=== PATIENT | female | born 1965 | race Caucasian/White ===

== ENCOUNTER 2018-05-20 11:44 | Emergency (ER) | payer OTHER ==
[~2018-05-20] VITALS: Ht 157.5 cm; Wt 86.2 kg
[~2018-05-20 11:44] MED LIST: GLYB5TAB14 PO; METF100028 PO; VALS160C PO
[2018-05-20 11:51] VITALS: BP 146/87
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
--- NOTE | 2018-05-20 12:03 | NUR ---
Patient being evaluated by physician at bedside.
[2018-05-20] MEDS ORDERED: ACETAMINOPHEN 325 MG TAB PO ONE (12:05)
[2018-05-20 12:52] VITALS: BP 143/83
--- NOTE | 2018-05-20 12:52 | NUR ---
Patient discharged with v/s stable. Written and verbal after care instructions given and explained. Patient alert, oriented and verbalized understanding of instructions. Ambulatory with steady gait. All questions addressed prior to discharge. ID band removed. Patient advised to follow up with PMD. Rx of norco and naprosyn given. Patient educated on indication of medication including possible reaction and side effects. Opportunity to ask questions provided and answered.
== END 2018-05-20 12:52 | disposition home or self-care (01) ==
LOC: MED 11:44
DX: S46.911A Strain of unspecified muscle, fascia and tendon at shoulder and upper arm level, right arm, initial encounter (principal); S16.1XXA Strain of muscle, fascia and tendon at neck level, initial encounter; S20.20XA Contusion of thorax, unspecified, initial encounter; E11.9 Type 2 diabetes mellitus without complications; I10 Essential (primary) hypertension; Z79.899 Other long term (current) drug therapy; Z79.84 Long term (current) use of oral hypoglycemic drugs; V49.50XA Passenger injured in collision with unspecified motor vehicles in traffic accident, initial encounter; Y93.89 Activity, other specified; Y92.410 Unspecified street and highway as the place of occurrence of the external cause; Y99.8 Other external cause status
CPT/HCPCS: 99283

== ENCOUNTER 2022-03-24 19:06 | Emergency (ER) | payer OTHER ==
[~2022-03-24] VITALS: Ht 157.5 cm; Wt 95.3 kg
[2022-03-24 19:15] VITALS: BP 140/72
[2022-03-24 21:16] LABS: BASOPHILS % (AUTO) 0.8 % (0.0-2.0); EOSINOPHILS % (AUTO) 0.5 % (0.0-4.0); HEMOGLOBIN 11.8 g/dL (12.0-16.0); LYMPHOCYTES # (AUTO) 1.7 K/uL (2.5-16.5); LYMPHOCYTES % (AUTO) 27.4 % (20.5-51.1); MEAN CORPUSCULAR HEMOGLOBIN 30 pg (27-31); MEAN CORPUSCULAR HGB CONC 34 g/dL (33-37); MEAN CORPUSCULAR VOLUME 87.3 fL (80-94); MONOCYTES # (AUTO) 0.7 K/uL (0.8-1.0); MONOCYTES % (AUTO) 11.1 % (1.7-9.3); NEUTROPHILS # (AUTO) 3.8 K/uL (1.8-7.7); NEUTROPHILS % (AUTO) 60.2 % (42.2-75.2); PLATELET COUNT (AUTO) 114 K/uL (140-450); RED BLOOD CELL COUNT(AUTO) 4.01 MIL/uL (4.20-5.40); WHITE BLOOD COUNT (AUTO) 6.2 K/uL (4.8-10.8)
[2022-03-24 21:40] LABS: ALBUMIN 3.3 g/dL (3.4-5.0); ANION GAP 9.2 (8-16); CARBON DIOXIDE 30.3 mmol/L (21-32); CREATININE 1.6 mg/dL (0.6-1.3); POTASSIUM 3.5 mmol/L (3.5-5.1); TOTAL BILIRUBIN 0.6 mg/dL (0.0-1.0)
[2022-03-24] MEDS ORDERED: CEPH-588 PO (22:30)
[2022-03-24 22:48] VITALS: BP 136/70
== END 2022-03-24 22:49 | disposition home or self-care (01) ==
LOC: MED 19:06
DX: R21 Rash and other nonspecific skin eruption (principal)
CPT/HCPCS: 36415; 80053; 85025; 93971; 99284; Q0092

== ENCOUNTER 2022-06-06 15:38 | Emergency (ER) | payer OTHER ==
[~2022-06-06] VITALS: Ht 147.3 cm; Wt 97.5 kg
[~2022-06-06 15:38] MED LIST changes: +CEPH-588 PO
[2022-06-06 15:45] VITALS: BP 134/71
--- NOTE | 2022-06-06 16:22 | NUR ---
PT AMBULATED TO BED 4 WITH STEADY GAIT
--- NOTE | 2022-06-06 16:30 | NUR ---
56/F WALKED IN C/O LEFT KNEE PAIN AND LEFT SHOULDER PAIN ONSET 1 MON. DENIES FALL OR TRAUMA. VSS, AMBULATORY. NKA PMH: HTN, DM, HDL
[2022-06-06] MEDS ORDERED: ACETAMINOPHEN/CODEINE 300/30MG 1 TAB PO ONE (16:45)
--- NOTE | 2022-06-06 17:00 | NUR ---
XR AT BEDSIDE
[2022-06-06 17:24] VITALS: BP 137/75
--- NOTE | 2022-06-06 17:59 | NUR ---
isela wrap x 1
--- NOTE | 2022-06-06 18:05 | NUR ---
isela wrap applied by restoration silversmith
--- NOTE | 2022-06-06 18:10 | NUR ---
Patient discharged with v/s stable. Written and verbal after care instructions given and explained. Patient verbalized understanding. Ambulatory with steady gait. All questions addressed prior to discharge. Advised to follow up with PMD.
== END 2022-06-06 18:10 | disposition home or self-care (01) ==
LOC: MED 15:38
DX: S83.92XA Sprain of unspecified site of left knee, initial encounter (principal); M25.512 Pain in left shoulder; I10 Essential (primary) hypertension; E11.9 Type 2 diabetes mellitus without complications; Z79.4 Long term (current) use of insulin; Z79.899 Other long term (current) drug therapy; W18.30XA Fall on same level, unspecified, initial encounter; Y93.89 Activity, other specified; Y92.89 Other specified places as the place of occurrence of the external cause; Y99.8 Other external cause status
CPT/HCPCS: 73030; 73562; 99284; Q0092